=== PATIENT | female | born 1995 | race Caucasian/White ===

== ENCOUNTER 2017-06-07 19:50 | Emergency (ER) | payer MEDICAID ==
[~2017-06-07] VITALS: Ht 165.1 cm; Wt 82.0 kg
[2017-06-07 19:56] VITALS: Ht 165.1 cm; Wt 82.0 kg
[2017-06-07] MEDS ORDERED: KETOROLAC 15 MG INJ IV STA (20:55)
[2017-06-07] MEDS ORDERED: AL HYDROX/MG HYDROX/SIMETH 30 ML CUP PO ONE (21:00)
--- NOTE | 2017-06-07 21:13 | ERD ---
ER Documentation Chief Complaint Date/Time DATE: 06/07/17 TIME: 21:08 Chief Complaint c/o pelvic pain x 3 days. Denies n/v/f/d. (+) dysuria. HPI This pleasant 21-year-old female presents to emergency department with 3 day history of abdominal pain, pain is low pelvic radiating to right lower quadrant and right upper quadrant. Patient reports hard schools but was able to have a bowel movement yesterday no bowel movement today. Patient denies rectal pain but reports seeing blood on toilet paper either coming from rectum or vagina. Patient reports dysuria, states her last menstrual period was the third of this month and normal and duration. Patient denies nausea, vomiting, fever, chills, patient states she is trying to get ROS All systems reviewed and are negative except as per history of present illness. Medications Home Meds Active Scripts Ibuprofen* (Motrin*) 400 Mg Tab, 400 MG PO Q6, #20 TAB Prov:PETER,BAILEY 06/07/17 Polyethylene Glycol* (Miralax*) 17 Gm Powd.pack, 17 GM PO DAILY, #7 Prov:PETER,BAILEY 06/07/17 Nitrofurantoin Monohyd Macrocr* (Macrobid*) 100 Mg Capsr, 100 MG PO HS for 7 Days, CAP Prov:PETER,BAILEY 06/07/17 Allergies Allergies: Coded Allergies: Penicillins (Unverified Allergy, Intermediate, RASH AND SOB, 06/07/17) PMhx/Soc Medical and Surgical Hx: pt denies Medical Hx, pt denies Surgical Hx Hx Alcohol Use: No Hx Substance Use: No Hx Tobacco Use: No Smoking Status: Never smoker Physical Exam Vitals Vitals stable, triage notes reviewed Physical Exam Const: Well nourished, well hydrated, in no acute distress well-appearing Head: Atraumatic Eyes: Normal Conjunctiva, PERRLA, EOMI ENT: Normal External Ears, Nose and Mouth mucous membranes moist. Neck: Resp: Respirations even and unlabored, no respiratory distress Cardio: Abd: Abdomen symmetric, tender to palpation right upper right lower quadrant , pelvic tenderness. No rebound tenderness. Tamez sign negative. Negative CVA tenderness, Skin: Back: No midline or flank tenderness Ext: Neur: Awake and alert Psych: Normal Mood and Affect Results 24 hrs Laboratory Tests Test 06/07/17 21:00 06/07/17 21:25 White Blood Count 10.910^3/ul Red Blood Count 4.6910^6/ul Hemoglobin 14.5g/dl Hematocrit 42.8% Mean Corpuscular Volume 91.3fl Mean Corpuscular Hemoglobin 30.9pg Mean Corpuscular Hemoglobin Concent 33.9g/dl Red Cell Distribution Width 11.9% Platelet Count 73423^3/UL Mean Platelet Volume 10.4fl Neutrophils % 59.4% Lymphocytes % 31.0% Monocytes % 6.7% Eosinophils % 2.0% Basophils % 0.5% Nucleated Red Blood Cells % 0.0/100WBC Neutrophils # 6.510^3/ul Lymphocytes # 3.410^3/ul Monocytes # 0.710^3/ul Eosinophils # 0.210^3/ul Basophils # 0.110^3/ul Nucleated Red Blood Cells # 0.010^3/ul Sodium Level 137mmol/L Potassium Level 3.8mmol/L Chloride Level 100mmol/L Carbon Dioxide Level 29mmol/L Anion Gap 12 Blood Urea Nitrogen 9mg/dl Creatinine 0.79mg/dl Glucose Level 96mg/dl Calcium Level 9.8mg/dl Total Bilirubin 0.2mg/dl Direct Bilirubin 0.00mg/dl Indirect Bilirubin 0.2mg/dl Aspartate Amino Transf (AST/SGOT) 36IU/L Alanine Aminotransferase (ALT/SGPT) 44IU/L Alkaline Phosphatase 69IU/L Total Protein 8.1g/dl Albumin 5.2g/dl Globulin 2.90g/dl Albumin/Globulin Ratio 1.79 Lipase 81U/L Bedside Urine pH (LAB) 6.0 Bedside Urine Protein (LAB) Negative Bedside Urine Glucose (UA) Negative Bedside Urine Ketones (LAB) Negative Bedside Urine Blood Trace-lysed Bedside Urine Nitrite (LAB) Negative Bedside Urine Leukocyte Esterase (L 1+ Current Medications Medications (Trade) Dose Ordered Sig/Megan Route PRN Reason Start Time Stop Time Status Last Admin Dose Admin Al Hydrox/Mg Hydrox/Simethicone (Mag-Al Plus) 30 ml ONCE ONCE PO 06/07/17 21:00 06/07/17 21:01 DC 06/07/17 21:21 Ketorolac Tromethamine (Toradol) 15 mg ONCE STAT IV 06/07/17 20:55 06/07/17 21:00 DC 06/07/17 21:21 Interpretation text CBC shows no evidence of hemorrhage or infection Chemistry shows no evidence of significant electrolyte abnormalities or renal insufficiency Liver function tests shows no evidence of acute biliary or hepatic dysfunction Procedures/MDM PROCEDURE: Right upper quadrant abdominal ultrasound. CLINICAL INDICATION: Abdominal pain TECHNIQUE: Shelton scale and color doppler ultrasound images of the right upper quadrant. COMPARISON: None FINDINGS: Pancreas: Visualized portions appear of normal echogenicity, no focal lesions. Liver: Morphology: Normal in size and contour. Echogenicity: Normal. Focal lesions: None. Main portal vein: Patent with hepatopetal flow. Biliary System: Normal appearing gallbladder wall. No gallstones seen. No intrahepatic biliary dilatation. Common bile duct measures 4.9 mm in maximal dimension. Kidneys: Right 12.2 cm in length. Right renal cortical thickness is preserved. Normal echogenicity. No hydronephrosis. No renal calculi. No focal lesions. No free fluid identified. IMPRESSION: Normal gallbladder without gallstones. RPTAT: AADD .Jonathon Lo MD, MD Date Time Electronically viewed and signed by .Jonathon Lo MD, MD on 06/07/2017 21:49 This pleasant 21-year-old female presents to emergency department with abdominal pain, dysuria, and hard stools. Patient's pain is located on the right upper and lower quadrant, radiates to pelvic pain, without back pain or CVA tenderness. Low suspicion for pancreatitis, nephrolithiasis, pyelonephritis , appendicitis, patient had serology testing to rule out any underlining infection, anemia or electrolyte imbalance, LFT to rule out any cirrhosis, or gallbladder disease with a gallbladder ultrasound with impressions of a normal gallbladder without gallstones. Urinalysis positive for +1 leukocytosis without microscopic hematuria or nitrates, patient will be treated for urinary tract infection with Macrobid 1 tab p.o. twice daily 7 days. Motrin as needed for pain, and MiraLAX daily for constipation. Increase fluids, increase rest. I feel the patient is stable for discharge at this time. I have discussed results, examination findings, the treatment plan with the patient and family present prior to discharge. Indications for emergent reevaluation, side effects of medication were also discussed. All questions were answered. Patient verbalizes understanding and agrees with plan of care. Departure Diagnosis: Primary Impression: Abdominal pain Abdominal location: right upper quadrant Qualified Code: R10.11 - Right upper quadrant abdominal pain Additional Impressions: UTI (urinary tract infection) Urinary tract infection type: acute cystitis Hematuria presence: without hematuria Qualified Code: N30.00 - Acute cystitis without hematuria Constipation Constipation type: unspecified constipation type Qualified Code: K59.00 - Constipation, unspecified constipation type Condition: Good Patient Instructions: Abdominal Pain, Constipation (Adult), Understanding Urinary Tract Infections (UTIs) [facility] Additional Instructions: Thank you for for coming to [facility] for your care today. Please ask your nurse or provider if you have questions about your care today and do not leave until all your questions have been answered. Please use any medications given as directed and follow-up with your doctor (or the doctor you were referred to) in the next 2-3 days. If you do not have a primary care doctor you may follow up at the [facility] (listed below). You may also use motrin and tylenol as needed for fever and/or pain unless instructed otherwise by your provider or nurse. Indications for more urgent follow-up have been discussed, but you may return to the Emergency Department at ANY time for any worrisome or worsening symptoms. If you have abdominal pain, please know that no test or exam you received is perfect and you should follow up within 8 hours for continued pain. If you had any imaging studies today, such as an X-Ray or CT Scan, these studies will be reviewed later by a radiologist. You will be called if there are important findings that were not identified today, so make sure the contact information you provided at registration is correct. If you received any narcotic pain control medicine today, such as Vicodin, Morphine or Dilaudid, your coordination and judgment may be affected for a number of hours. Please do not drive or operate heavy machinery, and you may want someone to assist you at home. If you were given a prescription for narcotic medication, be aware that it is very addictive- use sparingly and only if necessary. BAILEY GREEN Jun 07, 2017 21:13 BAILEY GREEN Jun 07, 2017 21:13
[2017-06-07 21:20] LABS: URINE BLOOD (Dip) POC Trace-lysed (NEGATIVE)
[2017-06-07 21:25] LABS: ADD SCAN DIFF NO
[2017-06-07 21:29] LABS: BASOPHIL # 0.1 10^3/ul (0.0-0.1); BASOPHILS % 0.5 % (0.0-2.0); EOSINOPHILS # 0.2 10^3/ul (0.0-0.5); HEMATOCRIT 42.8 % (37.0-47.0); HEMOGLOBIN 14.5 g/dl (12.0-16.0); LYMPHOCYTES # 3.4 10^3/ul (0.8-2.9); MEAN CORPUSCULAR HEMOGLOBIN 30.9 pg (29.0-33.0); MEAN CORPUSCULAR HGB CONC 33.9 g/dl (32.0-37.0); MEAN CORPUSCULAR VOLUME 91.3 fl (72.0-104.0); MEAN PLATELET VOLUME 10.4 fl (7.4-10.4); MONOCYTE # 0.7 10^3/ul (0.3-0.9); MONOCYTES % 6.7 % (0.0-13.0); NEUTROPHIL # 6.5 10^3/ul (1.6-7.5); NEUTROPHILS % 59.4 % (30.0-74.0); PLATELET COUNT 307 10^3/UL (140-415); RED BLOOD COUNT 4.69 10^6/ul (4.20-5.40); RED CELL DISTRIBUTION WIDTH 11.9 % (11.5-14.5); WHITE BLOOD COUNT 10.9 10^3/ul (4.8-10.8)
--- NOTE | 2017-06-07 21:50 | RADRPT ---
PROCEDURE: Right upper quadrant abdominal ultrasound. CLINICAL INDICATION: Abdominal pain TECHNIQUE: Shelton scale and color doppler ultrasound images of the right upper quadrant. COMPARISON: None FINDINGS: Pancreas: Visualized portions appear of normal echogenicity, no focal lesions. Liver: Morphology: Normal in size and contour. Echogenicity: Normal. Focal lesions: None. Main portal vein: Patent with hepatopetal flow. Biliary System: Normal appearing gallbladder wall. No gallstones seen. No intrahepatic biliary dilatation. Common bile duct measures 4.9 mm in maximal dimension. Kidneys: Right 12.2 cm in length. Right renal cortical thickness is preserved. Normal echogenicity. No hydronephrosis. No renal calculi. No focal lesions. No free fluid identified. IMPRESSION: Normal gallbladder without gallstones. RPTAT: AADD .Jonathon Lo MD, Date Time Electronically viewed and signed by .Jonathon Lo MD, on 06/07/2017 21:49 .B/
[2017-06-07 21:53] LABS: ALBUMIN 5.2 g/dl (3.3-4.9); ALBUMIN/GLOBULIN RATIO 1.79; BILIRUBIN,INDIRECT 0.2 mg/dl (0-1.1); BILIRUBIN,TOTAL 0.2 mg/dl (0.2-1.3); CALCIUM 9.8 mg/dl (8.4-10.2); CREATININE 0.79 mg/dl (0.44-1.00); POTASSIUM 3.8 mmol/L (3.5-5.1); TOTAL PROTEIN 8.1 g/dl (6.1-8.1)
[2017-06-07] MEDS ORDERED: NITR-58 PO (22:21)
[2017-06-07] MEDS ORDERED: POLY17PO6 PO (22:22)
[2017-06-07] MEDS ORDERED: IBUP400T22 PO (22:22)
[2017-06-07 22:37] VITALS: BP 108/76; PULSE 89; RESP 17; TEMP 98.9
[2017-06-24 16:19] LABS: URINE BLOOD (Dip) POC Trace-lysed (NEGATIVE)
== END 2017-06-07 22:37 | disposition home or self-care (01) ==
LOC: FTE 19:50
DX: R10.11 Right upper quadrant pain (principal); N30.00 Acute cystitis without hematuria; K59.00 Constipation, unspecified
CPT/HCPCS: 76705; 80053; 81003; 83690; 85025; J1885; Z7610; 36415; 96374

== ENCOUNTER 2017-08-09 16:50 | Emergency (ER) | payer MEDICAID ==
[~2017-08-09] VITALS: Wt 85.0 kg
[~2017-08-09 16:50] MED LIST: IBUP400T22 PO; NITR-58 PO; POLY17PO6 PO
[2017-08-09] MEDS ORDERED: LORAZEPAM 0.5 MG TAB PO ONE (17:30)
[2017-08-09 17:46] LABS: URINE BLOOD (Dip) POC Negative (NEGATIVE)
[2017-08-09 18:10] LABS: BASOPHILS % 0.5 % (0.0-2.0); EOSINOPHILS # 0.2 10^3/ul (0.0-0.5); EOSINOPHILS % 2.4 % (0.0-7.0); HEMATOCRIT 44.3 % (37.0-47.0); HEMOGLOBIN 15.1 g/dl (12.0-16.0); LYMPHOCYTES # 2.6 10^3/ul (0.8-2.9); LYMPHOCYTES % 33.3 % (18.0-55.0); MEAN CORPUSCULAR HEMOGLOBIN 30.9 pg (29.0-33.0); MEAN CORPUSCULAR HGB CONC 34.1 g/dl (32.0-37.0); MEAN CORPUSCULAR VOLUME 90.6 fl (72.0-104.0); MEAN PLATELET VOLUME 10.4 fl (7.4-10.4); MONOCYTE # 0.7 10^3/ul (0.3-0.9); MONOCYTES % 8.8 % (0.0-13.0); NEUTROPHIL # 4.3 10^3/ul (1.6-7.5); NEUTROPHILS % 54.7 % (30.0-74.0); PLATELET COUNT 304 10^3/UL (140-415); RED BLOOD COUNT 4.89 10^6/ul (4.20-5.40); RED CELL DISTRIBUTION WIDTH 11.8 % (11.5-14.5); WHITE BLOOD COUNT 7.9 10^3/ul (4.8-10.8)
--- NOTE | 2017-08-09 18:13 | RADRPT ---
PROCEDURE: Chest Radiograph. CLINICAL INDICATION: Shortness of breath. Anxiety. TECHNIQUE: Single frontal chest radiograph. COMPARISON: None available FINDINGS: The cardiomediastinal silhouette is within normal limits. No infiltrate or effusion is seen. Th e bones are intact. IMPRESSION: 1. Unremarkable chest radiograph. RPTAT: AA .Otto Lama MD, MD Date Time Electronically viewed and signed by .Otto Lama MD, on 08/09/2017 18:12 .B/
[2017-08-09 18:44] LABS: ANION GAP 14 (8-16); BLOOD UREA NITROGEN 11 mg/dl (7-20); CALCIUM 10.1 mg/dl (8.4-10.2); CARBON DIOXIDE 27 mmol/L (21-31); CHLORIDE 104 mmol/L (97-110); CREATININE 0.84 mg/dl (0.44-1.00); GLUCOSE 99 mg/dl (70-220); POTASSIUM 4.4 mmol/L (3.5-5.1); SODIUM 141 mmol/L (135-144)
[2017-08-09 18:56] LABS: TROPONIN-I < 0.012 ng/ml (0.00-0.12)
[2017-08-09] MEDS ORDERED: IBUPROFEN 200 MG TAB PO ONE (19:00)
[2017-08-09] MEDS ORDERED: NITR-58 PO (20:11)
--- NOTE | 2017-08-09 21:03 | ERD ---
ER Documentation Chief Complaint Date/Time DATE: 08/09/17 TIME: 20:56 Chief Complaint ANXIETY, SOB HPI This is a 21-year-old female presenting to emergency department with anxiety and shortness of breath. Patient states cooking dinner when suddenly she felt short of breath and felt like she was going to faint. Patient states she then developed numbness and tingling to her lower extremities and some nausea. No vomiting. Patient states she called 911 and was transferred to the ER via ambulance. Patient states similar episode happened 5 days ago. Patient currently denies pain. Patient does have some shortness of breath at times but states she is feeling much better. Patient states she is under "a lot of stress " at home because she is taking care of her 2-year-old on her own. Patient began crying during assessment and stated that she had a suicidal attempt 3 months ago. Currently patient denies suicidal ideation or homicidal ideation. ROS All systems reviewed and are negative except as per history of present illness. Medications Home Meds Active Scripts Nitrofurantoin Monohyd Macrocr* (Macrobid*) 100 Mg Capsr, 100 MG PO BID for 5 Days, CAP Prov:IBAN HORTON NP 08/09/17 Ibuprofen* (Motrin*) 400 Mg Tab, 400 MG PO Q6, #20 TAB Prov:PETER,BAILEY 06/07/17 Polyethylene Glycol* (Miralax*) 17 Gm Powd.pack, 17 GM PO DAILY, #7 Prov:PETER,BAILEY 06/07/17 Nitrofurantoin Monohyd Macrocr* (Macrobid*) 100 Mg Capsr, 100 MG PO HS for 7 Days, CAP Prov:PETER,BAILEY 06/07/17 Allergies Allergies: Coded Allergies: Penicillins (Unverified Allergy, Intermediate, RASH AND SOB, 08/09/17) PMhx/Soc Medical and Surgical Hx: pt denies Medical Hx, pt denies Surgical Hx Hx Alcohol Use: No Hx Substance Use: No Hx Tobacco Use: No Smoking Status: Never smoker Physical Exam Vitals Vital Signs Date Time Temp Pulse Resp B/P Pulse Ox O2 Delivery O2 Flow Rate FiO2 08/09/17 16:51 98.7 88 17 122/90 100 Physical Exam Const: No acute distress, alert Head: Atraumatic Eyes: Normal Conjunctiva ENT: Normal External Ears, Nose and Mouth. Neck: Full range of motion..~ No meningismus. Resp: Clear to auscultation bilaterally. No wheezing, rhonchi or crackles. No stridor or labored breathing. No intercostal retractions. Cardio: Regular rate and rhythm, no murmurs Abd: Soft, non tender, non distended. Normal bowel sounds Skin: No petechiae or rashes Back: No midline or flank tenderness Ext: No cyanosis, or edema Neur: Awake and alert Psych: Normal Mood and Affect Result Diagram: 08/09/17175408/09/171754 Results 24 hrs Laboratory Tests Test 08/09/17 17:53 08/09/17 17:55 Bedside Urine pH (LAB) 6.5 Bedside Urine Protein (LAB) Negative Bedside Urine Glucose (UA) Negative Bedside Urine Ketones (LAB) Negative Bedside Urine Blood Negative Bedside Urine Nitrite (LAB) Negative Bedside Urine Leukocyte Esterase (L 2+ White Blood Count 7.910^3/ul Red Blood Count 4.8910^6/ul Hemoglobin 15.1g/dl Hematocrit 44.3% Mean Corpuscular Volume 90.6fl Mean Corpuscular Hemoglobin 30.9pg Mean Corpuscular Hemoglobin Concent 34.1g/dl Red Cell Distribution Width 11.8% Platelet Count 92078^3/UL Mean Platelet Volume 10.4fl Neutrophils % 54.7% Lymphocytes % 33.3% Monocytes % 8.8% Eosinophils % 2.4% Basophils % 0.5% Nucleated Red Blood Cells % 0.0/100WBC Neutrophils # 4.310^3/ul Lymphocytes # 2.610^3/ul Monocytes # 0.710^3/ul Eosinophils # 0.210^3/ul Basophils # 0.010^3/ul Nucleated Red Blood Cells # 0.010^3/ul Sodium Level 141mmol/L Potassium Level 4.4mmol/L Chloride Level 104mmol/L Carbon Dioxide Level 27mmol/L Anion Gap 14 Blood Urea Nitrogen 11mg/dl Creatinine 0.84mg/dl Glucose Level 99mg/dl Calcium Level 10.1mg/dl Troponin I < 0.012ng/ml Current Medications Medications (Trade) Dose Ordered Sig/Megan Route PRN Reason Start Time Stop Time Status Last Admin Dose Admin Lorazepam (Ativan) 0.5 mg ONCE ONCE PO 08/09/17 17:30 08/09/17 17:31 DC 08/09/17 17:48 Ibuprofen (Motrin) 400 mg ONCE ONCE PO 08/09/17 19:00 08/09/17 19:01 DC 08/09/17 18:51 Procedures/MDM [place] [id number] Radiology Main Line: [phone] DIAGNOSTIC IMAGING REPORT Patient: RENATE VASQUES : 1995 Age: 21 Sex: F [id number] DOS: 08/09/17 1724 Ordering MD: IBAN HORTON NP Location: [facility] Room/Bed: PROCEDURE: Chest Radiograph. CLINICAL INDICATION: Shortness of breath. Anxiety. TECHNIQUE: Single frontal chest radiograph. COMPARISON: None available FINDINGS: The cardiomediastinal silhouette is within normal limits. No infiltrate or effusion is seen. The bones are intact. IMPRESSION: 1. Unremarkable chest radiograph. EKG: As interpreted by myself and Dr. Joe Rate/Rhythm: Normal sinus rhythm with heart rate 78 bpm QRS, ST, T-waves: No changes consistent w/ acute ischemia Impression: No evidence of ischemia or arrhythmia MDM: This is a 21-year-old female presenting to the emergency department with anxiety and shortness of breath starting earlier today. Patient believes she had a "panic attack" while at home earlier today. Patient states she is under a lot of stress because she is taking care of her 2-year-old on her own. Patient currently denies chest pain or chest palpitations. Patient states she has intermittent shortness of breath. Patient has history of asthma however no wheezing or difficulty breathing. Patient shows no signs or symptoms of respiratory distress. Oxygen saturation 100% on room air and respirations 17. Patient is afebrile and vital signs are stable. Because this is patient's second episode of presyncope labs, EKG, urine and chest x-ray were ordered. CBC shows no significant anemia or infection. BMP shows no significant electrolyte imbalance. Troponin is less than 0.012. Urine dip shows 2+ leukocyte esterase. Urine is negative.EKG shows normal sinus rhythm with heart rate 78 bpm. Chest x-ray reviewed by radiologist as unremarkable. Discussed findings with patient. Differential diagnosis includes but not limited to anxiety, pneumonia, bronchitis, pleurisy, costochondritis, gastroesophageal reflux,musculoskeletal chest pain and esophageal spasm. Low suspicion for acute coronary syndrome, pulmonary embolism, pneumothorax, aortic dissection and myocardial infarction. Patient is appropriate for outpatient management and will be discharged as stable. Instructed patient to follow up with primary care provider in the next 24-48 hours. Return to ED for worsening pain, abdominal pain, vomiting, diarrhea , high fever or any new or worsening symptoms. Patient verbalizes understanding. All questions answered at discharge. Disclaimer: Inadvertent spelling and grammatical errors are likely due to EHR/ dictation software use and do not reflect on the overall quality of patient care. Also, please note that the electronic time recorded on this note does not necessarily reflect the actual time of the patient encounter. Departure Diagnosis: Primary Impression: Anxiety Condition: Stable Patient Instructions: Your Body's Response to Anxiety, Anxiety Reaction Referrals: [facility] YOU HAVE RECEIVED A MEDICAL SCREENING EXAM AND THE RESULTS INDICATE THAT YOU DO NOT HAVE A CONDITION THAT REQUIRES URGENT TREATMENT IN THE EMERGENCY DEPARTMENT. FURTHER EVALUATION AND TREATMENT OF YOUR CONDITION CAN WAIT UNTIL YOU ARE SEEN IN YOUR DOCTORS OFFICE WITHIN THE NEXT 1-2 DAYS. IT IS YOUR RESPONSIBILITY TO MAKE AN APPOINTMENT FOR FOLOW-UP CARE. IF YOU HAVE A PRIMARY DOCTOR --you should call your primary doctor and schedule an appointment IF YOU DO NOT HAVE A PRIMARY DOCTOR YOU CAN CALL OUR PHYSICIAN REFERRAL HOTLINE AT IF YOU CAN NOT AFFORD TO SEE A PHYSICIAN YOU CAN CHOSE FROM THE FOLLOWING [facility] [address] [facility]. [facility] [address] [facility]. [facility] [address] [facility] [facility] [address] [facility] [facility] [address] [facility]. [facility]. [address] [facility]. [facility] YOU HAVE RECEIVED A MEDICAL SCREENING EXAM AND THE RESULTS INDICATE THAT YOU DO NOT HAVE A CONDITION THAT REQUIRES URGENT TREATMENT IN THE EMERGENCY DEPARTMENT. FURTHER EVALUATION AND TREATMENT OF YOUR CONDITION CAN WAIT UNTIL YOU ARE SEEN IN YOUR DOCTORS OFFICE WITHIN THE NEXT 1-2 DAYS. IT IS YOUR RESPONSIBILITY TO MAKE AN APPOINTMENT FOR FOLOW-UP CARE. IF YOU HAVE A PRIMARY DOCTOR --you should call your primary doctor and schedule and appointment IF YOU DO NOT HAVE A PRIMARY DOCTOR YOU CAN CALL OUR PHYSICIAN REFERRAL HOTLINE AT . IF YOU CAN NOT AFFORD TO SEE A PHYSICIAN YOU CAN CHOSE FROM THE FOLLOWING [facility] INSTITUTIONS: [facility] [address] [place] [address] [facility] [address] [place] [address] [facility] [address] [place] [address] Additional Instructions: Call your primary care doctor TOMORROW for an appointment during the next 2-3 days.See the doctor sooner or return here if your condition worsens before your appointment time. Return to ED for any high fever, chest pain, difficulty breathing, shortness breath, wheezing, vomiting, diarrhea, abdominal pain or any new or worsening symptoms. IBAN HORTON NP Aug 09, 2017 21:03
== END 2017-08-09 20:17 | disposition home or self-care (01) ==
LOC: FTE 16:50
DX: F41.9 Anxiety disorder, unspecified (principal); R06.02 Shortness of breath
CPT/HCPCS: 71010; 80048; 81003; 84484; 85025; 93005; Z7502; Z7610